=== PATIENT | female | born 2000 | race Caucasian/White ===

== ENCOUNTER 2018-06-15 18:37 | Emergency (ER) | payer OTHER ==
--- NOTE | 2018-06-15 20:05 | UC ---
Lower Extremity/Ankle HPI - HPI Summary HPI Summary: R ankle pain started yesterday after falling from ladder, 3rd step. then fell onto back. today denies back pain but feels R ankle is worse w/ pain and swelling. pain w/ weight bearing and some pain w/ movement. notices some swelling but she denies bruising. - History of Current Complaint Chief Complaint: UCLowerExtremity Stated Complaint: WC-RT ANKLE INJURY Time Seen by Provider: 06/15/18 19:33 Hx Obtained From: Patient Hx Last Menstrual Period: DOES NOT HAVE REG PERIODS, USES DEPO Pain Intensity: 7 Pain Scale Used: 0-10 Numeric - Allergies/Home Medications Allergies/Adverse Reactions: Allergies Allergy/AdvReac Type Severity Reaction Status Date / Time dust mites Allergy Unknown Unknown Uncoded 06/15/18 19:36 Reaction Details Home Medications: Home Medications Ibuprofen TAB* [Advil TAB*] 200 mg PO Q6H PRN 06/15/18 [History Confirmed ] medroxyPROGESTERone ACETATE* [DEPO-Provera] 150 mg IM 06/15/18 [History] PMH/Surg Hx/FS Hx/Imm Hx Previously Healthy: Yes - Surgical History Surgical History: Yes Surgery Procedure, Year, and Place: T&A. EAR TUBES - Social History Alcohol Use: Occasionally Substance Use Type: None Smoking Status (MU): Never Smoked Tobacco Review of Systems All Other Systems Reviewed And Are Negative: Yes Constitutional: Positive: Negative Skin: Negative: Bruising Motor: Negative: Decreased ROM, Weakness Musculoskeletal: Positive: Arthralgia - pain in R akle Neurological: Negative: Weakness, Paresthesia, Numbness Physical Exam Triage Information Reviewed: Yes Appearance: Well-Appearing Vital Signs: Initial Vital Signs Temp 97.8 F 06/15/18 19:38 Pulse 87 06/15/18 19:38 Resp 16 06/15/18 19:38 BP 116/78 06/15/18 19:38 Pulse Ox 100 06/15/18 19:38 Vital Signs Reviewed: Yes Musculoskeletal: Positive: Strength Intact, ROM Intact, No Edema - r ankle, Other: - negative [facility] Neurological: Positive: Muscle Tone Normal Diagnostics - Radiology No standard instances Radiology Interpretation Completed By: ED Physician Summary of Radiographic Findings: NO obvious fractures and some soft tissue swelling Lower Extremity Course/Dx - Course Course Of Treatment: R ankle pain after fall from ladder. preliminary xrays do not show obvious fracture, final read tomorrow. For now will stabilize in CAM boot and she already has crutches. neurovascularly intact. - Differential Dx/Diagnosis Differential Diagnosis/HQI/PQRI: Fracture (Closed), Sprain, Strain, Tendonitis Provider Diagnosis: Ankle pain Discharge - Sign-Out/Discharge Documenting (check all that apply): Patient Departure All imaging exams completed and their final reports reviewed: No - Discharge Plan Condition: Good Disposition: HOME Patient Education Materials: Arthralgia (ED) Forms: *Work Release Referrals: Ethel Gaytan MD [Medical Doctor] - Additional Instructions: please follow up with orthopedics. - Billing Disposition and Condition Condition: GOOD Disposition: Home - Attestation Statements Provider Attestation: I was available for consult. This patient was seen by the SNOW. The patient was not presented to, seen by, or examined by me. EK
--- NOTE | 2018-06-16 08:15 | UC ---
- Progress Note Progress Note: xray report right ankle : FINDINGS: There is mild diffuse soft tissue swelling. The bones are in normal alignment. No fracture is seen. Joint spaces appear maintained. IMPRESSION: SOFT TISSUE SWELLING, NO FRACTURE IS SEEN. Course/Dx - Diagnoses Provider Diagnoses: Ankle pain Discharge - Sign-Out/Discharge Documenting (check all that apply): Patient Departure All imaging exams completed and their final reports reviewed: Yes - Discharge Plan Condition: Good Disposition: HOME Patient Education Materials: Arthralgia (ED) Forms: *Work Release Referrals: Ethel Gaytan MD [Medical Doctor] - Additional Instructions: please follow up with orthopedics. - Billing Disposition and Condition Condition: GOOD Disposition: Home
== END 2018-06-15 20:27 | disposition home or self-care (01) ==
LOC: UCCORT 18:37
DX: M25.571 Pain in right ankle and joints of right foot (principal); Z91.09 Other allergy status, other than to drugs and biological substances
CPT/HCPCS: 99203; G0463

== ENCOUNTER 2019-05-08 14:58 | Emergency (ER) | payer BC, OTHER ==
[2019-05-08 16:01] VITALS: BP 104/76
[2019-05-08] MEDS ORDERED: Ondansetron ODT TAB* 4 MG PO ONE (16:17)
--- NOTE | 2019-05-08 16:42 | UC ---
Abdominal Pain Female HPI - HPI Summary HPI Summary: 18 yo female with the onset last pm of lower abd pain was able to sleep ok awoke this AM and had n/v and diarrhea unable to tolerate PO no f/c no UTI symptoms - History of Current Complaint Chief Complaint: UCGI Stated Complaint: NAUSEA, VOMITING Time Seen by Provider: 05/08/19 15:52 Hx Obtained From: Patient Hx Last Menstrual Period: Uses depo, does not have reg periods Onset/Duration: Sudden Onset, Lasting Hours Timing: Constant Severity Initially: Severe Severity Currently: Severe Pain Intensity: 8 - NAUSEA Pain Scale Used: 0-10 Numeric Location: Diffuse Radiates: No Character: Colicy Aggravating Factor(s): Food Alleviating Factor(s): Nothing Associated Signs and Symptoms: Positive: Decreased Appetite, Nausea, Vomiting, Diarrhea. Negative: Diaphoresis, Fever, Cough, Chest Pain, Dizzy, Back Pain, Constipation, Blood in Stool, Urinary Symptoms, Vaginal Bleeding, Vaginal Discharge Allergies/Adverse Reactions: Allergies Allergy/AdvReac Type Severity Reaction Status Date / Time dust mites Allergy Unknown Unknown Uncoded 05/08/19 15:52 Reaction Details Home Medications: Home Medications Escitalopram Oxalate [Lexapro 10 mg] 10 mg PO DAILY 05/08/19 [History Confirmed 05/08/19] PMH/Surg Hx/FS Hx/Imm Hx Previously Healthy: Yes - Surgical History Surgical History: Yes Surgery Procedure, Year, and Place: T&A. EAR TUBES - Family History Known Family History: Positive: Hypertension, Diabetes - Social History Alcohol Use: Occasionally Substance Use Type: None Smoking Status (MU): Never Smoked Tobacco Review of Systems All Other Systems Reviewed And Are Negative: Yes Skin: Positive: Negative Eyes: Positive: Negative ENT: Positive: Negative Respiratory: Positive: Negative Cardiovascular: Positive: Negative Gastrointestinal: Positive: Abdominal Pain, Vomiting, Diarrhea, Nausea Genitourinary: Positive: Negative Motor: Positive: Negative Neurovascular: Positive: Negative Musculoskeletal: Positive: Negative Neurological/Mental Status: Positive: Negative Psychological: Positive: Negative Physical Exam Triage Information Reviewed: Yes Appearance: Well-Appearing, No Pain Distress, Well-Nourished Vital Signs: Initial Vital Signs Temp 98.8 F 05/08/19 15:52 Pulse 85 05/08/19 15:52 Resp 18 05/08/19 15:52 BP 104/76 05/08/19 15:52 Pulse Ox 100 05/08/19 15:52 Vital Signs Reviewed: Yes Eyes: Positive: Conjunctiva Clear ENT: Positive: Hearing grossly normal, Uvula midline. Negative: Nasal congestion, Nasal drainage, Tonsillar swelling, Tonsillar exudate, Trismus, Muffled voice, Hoarse voice, Sinus tenderness Dental Exam: Normal Neck: Positive: Supple, Nontender, No Lymphadenopathy Respiratory: Positive: Lungs clear, Normal breath sounds, No respiratory distress, No accessory muscle use Cardiovascular: Positive: RRR, No Murmur Abdomen Description: Positive: No Organomegaly, Soft. Negative: Nontender - diffusely tender /worse RUQ, Bruit, CVA Tenderness (R), CVA Tenderness (L), Distended, Guarding Bowel Sounds: Positive: Present Musculoskeletal: Positive: ROM Intact, No Edema Neurological: Positive: Alert, Muscle Tone Normal Psychological Exam: Normal Skin Exam: Normal Diagnostics - Laboratory Lab Results: UA-neg Re-Evaluation - Re-Evaluation First Eval Re-Evaluation Time: 16:53 Change: Unchanged - no change after zofran Abd Pain Female Course/Dx - Course Course Of Treatment: D/W [facility] Nurse to [facility] via pov for evaluation - Differential Dx/Diagnosis Provider Diagnosis: Abdominal pain, vomiting, and diarrhea Discharge ED - Sign-Out/Discharge Documenting (check all that apply): Patient Departure All imaging exams completed and their final reports reviewed: No Studies - Discharge Plan Condition: Stable Disposition: HOME-RECOMMEND TO ED Referrals: No Primary Care Phys,NOPCP [Primary Care Provider] - Additional Instructions: I suggest you go to the ER for the evaluation of your abdominal pain/vomiting and diarrhea - Billing Disposition and Condition Condition: STABLE Disposition: Home-Recommend to ED
== END 2019-05-08 16:55 | disposition home health service (06) ==
LOC: UCCORT 14:58
DX: R10.9 Unspecified abdominal pain (principal); R19.7 Diarrhea, unspecified; R11.2 Nausea with vomiting, unspecified; Z91.09 Other allergy status, other than to drugs and biological substances
CPT/HCPCS: 81003; 87086; 99212; A9270-GY; G0463